=== PATIENT | male | born 1985 | race Caucasian/White ===

== ENCOUNTER 2017-01-07 22:59 | Emergency (ER) | payer OTHER ==
[~2017-01-07] VITALS: Ht 182.9 cm; Wt 86.2 kg
--- NOTE | 2017-01-07 23:10 | ED PSYCHIATRIC COMPLAINT ---
History of Present Illness General Chief Complaint: Psychiatric Related Complaint Stated Complaint: PT IS POSTIVE SI Source: patient Exam Limitations: no limitations Vital Signs & Intake/Output Vital Signs & Intake/Output Vital Signs Date Time Temp Pulse Resp B/P Pulse O2 O2 Flow FiO2 Ox Delivery Rate 01/08 1101 97.9 70 18 121/68 97 Room Air 01/08 0634 97.9 71 16 118/55 100 Room Air 01/08 0236 98.6 66 18 136/72 98 Room Air 01/07 2307 97.0 75 18 141/89 100 Room Air ED Intake and Output 01/08 0000 01/07 1200 Intake Total 100 Output Total Balance 100 Intake, Oral 100 Patient 190 lb Weight Allergies Coded Allergies: NO KNOWN ALLERGIES (01/07/17) Triage Note: PT TO TRIAGE FOR +SI WITH NO PLAN, DEPRESSION xWEEK. HX OF BIPOLAR DISEASE, DEPRESSION,PTSD. PT DENIES HI, DENIES ETOH, ADMITS TO MARIJUANA USE 2 DAYS AGO. VSS. PT AMB TO ROOM13. Triage Nurses Notes Reviewed? yes Onset: Gradual Duration: week(s):, waxing and waning Timing: recent history Severity: moderate, severe Associated Symptoms: anxiety, suicidal ideation HPI: 31-year-old gentleman history of bipolar disorder and major depression presents with suicidality. He states that he has been feeling increasingly suicidal over the past several weeks. He saw his psychiatrist who gave him a prescription for lithium. He did not fill the lithium prescription. He states, "I don't know why. I was doing better on the lithium." He states that he is been doing heroin and smoking marijuana. He denies other drugs and alcohol. He states that if he were to kill himself, he would like to do it painlessly, such as with a gun. However, he states that he does not have a gun. (FITO MARTINEZ,SEEMA Whittaker) Past History Travel History Traveled to [place] past 21 day No Medical History Any Pertinent Medical History? see below for history Neurological: NONE EENT: NONE Cardiovascular: NONE Respiratory: NONE Gastrointestinal: ULCER Hepatic: NONE Renal: NONE Musculoskeletal: NONE Psychiatric: bipolar disease, depression, PTSD Endocrine: NONE Blood Disorders: NONE Cancer(s): NONE History of MRSA: No History of VRE: No History of CDIFF: No Surgical History Surgical History: non-contributory Psychosocial History Who do you live with Other (see notes) Services at Home None What is your primary language Vincentian Tobacco Use: Current Daily Use Daily Tobacco Use Amount/Type: => 5 Cigarettes daily ETOH Use: denies use Illicit Drug Use: marijuana Family History Family History, If Any: Relation not specified for: *No pertinent family history Hx Contributory? No (FITO MARTINEZ,SEEMA Whittaker) Review of Systems Review of Systems Constitutional: Reports: no symptoms. EENTM: Reports: no symptoms. Respiratory: Reports: no symptoms. Cardiovascular: Reports: no symptoms. GI: Reports: no symptoms. Genitourinary: Reports: no symptoms. Musculoskeletal: Reports: no symptoms. Skin: Reports: no symptoms. Neurological/Psychological: Reports: no symptoms. Hematologic/Endocrine: Reports: no symptoms. Immunologic/Allergic: Reports: no symptoms. All Other Systems: Reviewed and Negative (FITO MARTINEZ,SEEMA Whittaker) Physical Exam Physical Exam General Appearance: well developed/nourished, mild distress Head: atraumatic Eyes: Bilateral: PERRL, EOMI. Ears, Nose, Throat: normal pharynx, normal ENT inspection, hearing grossly normal Neck: normal inspection, supple Respiratory: normal breath sounds Cardiovascular: regular rate/rhythm Gastrointestinal: soft, non-tender Extremities: normal range of motion Neurological/Psychiatric: no motor/sensory deficits, anxious, oriented x 3 Appearance/Memory/Insight: appropriate insight Behavoir/Eye Contact/Speech: cooperative Thoughts/Hallucinations: no apparent hallucination Skin: intact, normal color, warm/dry SAD PERSONS SAD PERSONS Response Value Male Sex? yes 1 Depression/Hopelessness? yes 2 Excessive Ethanol/Drug Use? yes 1 Rational Thinking Loss? yes 2 Single//? yes 1 Social Support? has no support 1 Total 8 SAD PERSONS Done? yes (FITO MARTINEZ,SEEMA Whittaker) Progress Differential Diagnosis: drug intoxication, depression, bipolar, drug abuse. vs other Plan of Care: Orders Procedure Date/time Status Regular Diet 01/08 B Active Continuous Observation Monitor 01/07 2310 Active URINE DRUG SCREEN FOR ER ONLY 01/07 2310 Complete ETHANOL 01/07 2310 Complete COMPREHENSIVE METABOLIC PANEL 01/07 2310 Complete CBC WITHOUT DIFFERENTIAL 01/07 2310 Complete ED CRISIS PSYCH CONSULT 01/07 2310 Active Laboratory Tests 01/08/17 0234: Anion Gap 7, Estimated GFR > 60, BUN/Creatinine Ratio 12.9, Glucose 81, Calcium 9.3, Total Bilirubin 0.6, AST 15 L, ALT 28, Alkaline Phosphatase 52, Total Protein 6.3, Albumin 3.8, Globulin 2.5, Albumin/Globulin Ratio 1.5, CBC w Diff NO MAN DIFF REQ, RBC 4.12 L, MCV 90.2, MCH 29.5, RDW 13.7, MPV 8.5, Gran % 45.2 , Lymphocytes % 45.0, Monocytes % 6.9, Eosinophils % 2.4, Basophils % 0.5, Absolute Granulocytes 3.4, Absolute Lymphocytes 3.4, Absolute Monocytes 0.5, Absolute Eosinophils 0.2, Absolute Basophils 0, PUBS MCHC 32.8 L, Serum Alcohol < 10.0 01/08/17 0020: Urine Opiates Screen > 4000.00 H, Methadone Screen > 735 H, Barbiturate Screen < 60, Ur Phencyclidine Scrn < 6.00, Amphetamines Screen 207, U Benzodiazepines Scrn > 800 H, Urine Cocaine Screen < 50, Urine Cannabis Screen > 80.00 H Hand-Off Endorsed To: YENNIFER HARRINGTON MD Endorsed Time: 0700 Pending: consult, labs (FITO MARTINEZ,SEEMA Whittaker) Departure Departure Condition: Stable Clinical Impression Primary Impression: Bipolar disorder Secondary Impressions: Polysubstance abuse Referrals: PATIENT HAS NO PRIMARY CARE DR (PCP/Family) Departure Forms: Customer Survey General Discharge Information (SEEMA PAYTON MD) Departure Disposition: HOME OR SELF CARE Additional Instructions: RETURN FOR ANY CONCERNS (YENNIFER HARRINGTON MD)
[2017-01-08 02:44] LABS: ABSOLUTE BASOPHIL COUNT 0 /CUMM (0.0-0.2); ABSOLUTE EOSINOPHIL COUNT 0.2 /CUMM (0.0-0.7); ABSOLUTE GRANULOCYTE CT 3.4 /CUMM (1.4-6.5); ABSOLUTE LYMPH COUNT 3.4 /CUMM (1.2-3.4); ABSOLUTE MONOCYTE COUNT 0.5 /CUMM (0.10-0.60); BASOPHIL % 0.5 % (0.0-2.0); EOSINOPHIL % 2.4 % (0-5); GRANULOCYTE % 45.2 % (42.2-75.2); HEMATOCRIT 37.2 % (42-52); MEAN CORPUSCULAR HGB 29.5 PG (27.0-31.0); MEAN CORPUSCULAR HGB CONC 32.8 G/DL (33.0-37.0); MEAN CORPUSCULAR VOLUME 90.2 FL (80.0-94.0); MEAN PLATELET VOLUME 8.5 FL (7.4-10.4); PLATELET COUNT 273 /CUMM (130-400); RBC DISTRIBUTION WIDTH 13.7 % (11.5-14.5); RED BLOOD CELL CT 4.12 /CUMM (4.70-6.10); WHITE BLOOD CELL COUNT 7.5 /CUMM (4.8-10.8)
--- NOTE | 2017-01-08 10:06 | ED PSYCH CRISIS CONSULTATION ---
Crisis Consult Basic Assessment Date of Consult: 01/08/17 Responsible Person/Accompanied By: by himself, a friend followed him here Insurance Authorization: Insurance #1: Insurance name: HELEN [employer] Phone number: Policy number: [id number] Group number: Authorization number: ED Provider: Patient's ED Provider: FITO MARTINEZ,SEEMA Whittaker Primary Care Physician: Patient's PCP: PATIENT HAS NO PRIMARY CARE DR PCP's Phone Number: Current Psychiatrist: Denies Chief Complaint: Psychiatric Related Complaint Patient's Quote: "Im having bad thoughts" Present Illness: Pt is a 31 year old male, he lives alone and works for a small [employer] business. Pt reports he was on 85 mg of methadone and stopped 'cold turkey last week", he reports he relapsed 2 days ago, and bought methadone off the street, used xanax, cannabis and heroin "2 bags". Pt reports "I was having bad thoughts and thought the heroin would make me feel better". Pt exhibiting little insight to mental health or drug use. Denies hi/ah/vh. Pt reports he detoxed here in and has been clean since, stopped medications for "bipolar" "months ago" and can not recall what he was on. 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 Pt has a flat affect, and is not forthcoming. Pt denies previous attempts of si or a plan, but is minimizing relapse and has not been compliant with treatment/medications. By the time this evlauation was completed, pt stated he was lying and came to ER to warm up and was homesless but not suicidal, see ADDENDUM. Patient's Address: [address] [place] [address] Other Phone Number: Who Do You Live With? Other (see notes) Family/Informants Interviewed: Spoke with Umair, he states he wanted to make sure he came to ER to get help, that he hasnt been himself lately and was making suicidal remarks. Allergies - Coded Allergies: NO KNOWN ALLERGIES (01/07/17) Laboratory Results: Laboratory Tests 01/08/17 0234: Anion Gap 7, Estimated GFR > 60, BUN/Creatinine Ratio 12.9, Glucose 81, Calcium 9.3, Total Bilirubin 0.6, AST 15 L, ALT 28, Alkaline Phosphatase 52, Total Protein 6.3, Albumin 3.8, Globulin 2.5, Albumin/Globulin Ratio 1.5, CBC w Diff NO MAN DIFF REQ, RBC 4.12 L, MCV 90.2, MCH 29.5, RDW 13.7, MPV 8.5, Gran % 45.2 , Lymphocytes % 45.0, Monocytes % 6.9, Eosinophils % 2.4, Basophils % 0.5, Absolute Granulocytes 3.4, Absolute Lymphocytes 3.4, Absolute Monocytes 0.5, Absolute Eosinophils 0.2, Absolute Basophils 0, PUBS MCHC 32.8 L, Serum Alcohol < 10.0 01/08/17 0020: Urine Opiates Screen > 4000.00 H, Methadone Screen > 735 H, Barbiturate Screen < 60, Ur Phencyclidine Scrn < 6.00, Amphetamines Screen 207, U Benzodiazepines Scrn > 800 H, Urine Cocaine Screen < 50, Urine Cannabis Screen > 80.00 H Addendum Addendum Upon entering pts room I told him we could find him a bed as there weren't going to be beds here today, he stated "Thats gonna casue problem,s my girlfriend is in the room next to me, and we came here together to warm up, and were tired of staying in our cars. Pt states Im not suicidal, I want to leave. "We need to go ". We are going to stay with our friend Shawanda. Pt gave me her phone number. [phone]. I spoke with Shawanda she states she would never turn them away,and they are going to their house. She was hopeful that if her comes home from work later tonight he may have the opportunity to talk with pt and have him come back to ER alone, she states "they (regards to him and his gf) do this all time in reference to going to hospitals together. Shawanda mentioned he should not worry so much about his gf, and try to focus on himself, she states she will try to get him help, but was aware that he would be calling her and returning to her home. Spoke with Dr. Daniel pt to return to ER if wants treatment and encouraged to return alone and not in attempt to "get wamr, but to address mental health conditions". Upon discharge pt denies si/hi/ah/vh. "im not going to hurt myself , I just dont want to stay here". 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 Physical Limitations (Interventions): none Psychiatric Treatment History Psych Treatment Psychiatric Treatment No Inpatient Treatment No Outpatient Treatment No Diagnosis by History: "bipolar" "polysubstance" Substance Use/Abuse History Drug Use/Abuse 1 Substances Used/Abused Yes Substance Used/Abused Heroin First Use unknown Last Used 2 days ago How much used/taken 2 bags How often denies use for the past year For how long denies use for the past year, relapsed 2 days ago Route of use unknown Drug Use/Abuse 2 Substances Used/Abused Yes Substance Used/Abused Benzodiazepines First Use unknown Last Used yesterday How much used/taken "half a xanax" How often unknown For how long unknown Route of use oral Drug Use/Abuse 3 Substances Used/Abused Yes Substance Used/Abused Marijuana First Use unknown Last Used yesterday How much used/taken unknown How often unknown For how long on and off Route of use smoke Drug Use/Abuse 4 Substances Used/Abused Yes Substance Abuse Treatment Substance Abuse Treatment Past Substance Abuse TX Yes Inpatient Treatment Yes Outpatient Treatment Yes Location of Treatment [facility] 2015 for detox Reason for Treatment polysubstance Dates of Treatment 2015 Response to Treatment per pt report he was clean since and was at a methadone clinic until last Current Mental Status Mental Status Orientation: Person, Place, Situation Affect: Flat, Lonely, Sad Speech: Poverty Neuro-vegetative: Concentration Poor, Energy Decreased, Loss of Interest, Sleep Disturbance Appearance Appearance- Dress/Hygiene: groomed, in hospital attire Behaviors Thought Process: Irrational Thought Content: WNL Memory: WNL Insight: Poor SI/HI Risk Assessment Past Suicidal Ideation/Attempts No Current Suicidal Ideation/Att No Past Homicidal Ideation/Att: No Current Homicidal Ideation/Attempts No Degree of Intent: Thoughts/No Intent Danger To: Self Gravely Disabled: Poor Judgment Risk Factors: substance abuse, poor impulse control, male, limited support Lethality Ratin PTSD Checklist PTSD Done? patient declined ED Management Sitter: Yes Restraints: No DSM5/PS Stressors/Medical Prob Diagnosis' (DSM 5, Stressors, Medical): Bipolar unspecfied F31.9 polysubstance opiates/stimulants/cannabis/ Current GAF: 28 Departure Disposition Psych Medical Clearance Date: 01/08/17 Medically Cleared at: 929 Time Started: 929 Time Ended: 1025 Psychiatrist Consulted: Tamika Daniel MD Date Disposition Established: 01/08/17 Time Disposition Established: 1025 Plan for Disposition - Modality: Unknown Facility: Patient to Arrange Follow-up Appt Date: 01/08/17 Follow-Up Appt Time: 1025 Rationale for Disposition: consulted with Dr. Daniel, pt was expressing si and has had a recent relapse, is exhibiting poor judgement and requesting inpatient level of care. Once pt was presented with the option pt denied wanting to stay here, and denies si. Confirmed with friend Shawanda, that he would return to ER if needed to. Referrals PATIENT HAS NO PRIMARY CARE DR (PCP/Family)
[2017-01-08 11:01] VITALS: BP 121/68
== END 2017-01-08 11:02 ==
LOC: ERH 22:59
PROVIDERS: Pediatrics
DX: F31.9 Bipolar disorder, unspecified (principal); F11.10 Opioid abuse, uncomplicated; F12.10 Cannabis abuse, uncomplicated
CPT/HCPCS: 80307; G0463; G0480